=== PATIENT | male | born 1950 | race Caucasian/White ===

== ENCOUNTER → 2021-07-20 12:57 | Outpatient (BNVA) | payer MEDICARE, OTHER, SELFPAY | PROVIDERS: PCP Internal Medicine; Visit Provider Nurse Practitioner Family | DX: R90.82 White matter disease, unspecified (principal); R26.9 Unspecified abnormalities of gait and mobility; R29.898 Other symptoms and signs involving the musculoskeletal system; R25.1 Tremor, unspecified; F09 Unspecified mental disorder due to known physiological condition | CPT/HCPCS: 99202 ==

== ENCOUNTER → 2021-09-17 08:58 | Outpatient (BNVA) | payer MEDICARE, OTHER, SELFPAY | PROVIDERS: PCP Internal Medicine; Visit Provider Nurse Practitioner Family | DX: R26.9 Unspecified abnormalities of gait and mobility (principal); R25.1 Tremor, unspecified; F09 Unspecified mental disorder due to known physiological condition | CPT/HCPCS: 99212 ==

== ENCOUNTER 2024-02-28 08:10 | Outpatient (AMB) | payer MEDICARE, OTHER, SELFPAY ==
--- NOTE | 2024-02-28 08:11 | A.OFFVIS_ITS ---
Vital Signs 02/28/24 08:12 Height 6 ft 2 in Weight 213 lb BMI 27.3 BP 118/70 Blood Pressure Location Rt brachial Position Sitting Pulse 67 Pulse Source Pulse Oximeter Pulse Oximetry (%) 100 Oxygen Delivery Method Room Air Intake Visit Reasons: Follow up Intake Note: patient presents for follow up Allergies No Known Allergies Allergy (Verified 02/28/24 08:16) Medication List - Last Reconciled 02/28/24 by SALINAS Matta amlodipine 5 mg PO DAILY aspirin (Adult Low Dose Aspirin) 81 mg PO DAILY celecoxib (Celebrex) 50 mg PO BID omeprazole 20 mg PO DAILY rosuvastatin 10 mg PO DAILY sertraline 100 mg PO BID HPI Comments Details: 73-yr-old male presents for f/u visit after 2.5 yrs, w/ request to eval for possible Parkinson's d/t worsening cognition, tremor, voice changes. Pt denies any significant interval medical history changes. Pt's primary concerns are: worsening cognition Right-handed ADL's: Ind IADL's: Ind Living situation: Lives his , dtr and son-in-law and 2 grandchildren (7 yr old and 4 months old). Swallowing: Denies Hyposmia: Denies Voice changes: Denies- though states today his voice is raspy d/t congestion. Drooling: Occasional at night Orthostatic lightheadedness: Denies Constipation: Denies- more prone to frequent stools Urinary symptoms: Having urinary urgency, dribbling. Denies h/o BPH or prosttae d/o. Tremor: Occasional RUE postural tremor- more so if anxious. Denies rest tremor. Tremor does not affect his ADLs/IADLs. Dyskinesia: Denies Stiffness: Back is stiff every morning- does some exercises which helps Cramps: BLE cramps usually in early am when in bed. Gait changes: May bump into the corner of something. He has to be careful not to trip on things- notes there are a lot of toys etc in the home. Freezing: Denies Falls: Had a fall a few days ago, tripped over a root while walking on a path. Not as secure in his feet. Mood: Feels his Sertraline 200mg qhs is helpful for anxiety/depression. Hallucinations: Occasionally may feel that something just went past him. Or occasionally may have difficulty telling what something is. He has been attributing this to his glasses. He also notes some more difficulty with depth perception. Memory: He feels his memory is a bit worse. He may mispronounce a word. He has word finding difficulties. He may forget why her went into a room. He finds himself talking to himself to help w/ recall. He may forget how to start his computer but if he waits this may come to him. His last neuro-psych eval was c/w [facility] in 2021. Sleep: Usually sleeps ok. Denies parasomnias Exercise: Used to better at golf- attributes this to stress/desire. Otherwise no usual exercise. Previous brain MRI 2020 at [facility]- showed nonspefic white matter changes of bilateral periventricular regions. Does have some neck pain/tightness, can move into left shoulder shoulder blade. He coates shave h/o multilevel cervical neural foraminal stenosis. He currently takes 2-3 rum (1-2 oz) and cokes most evenings (starts 2-3pm). He had quit alcohol cold turkey in Apr 2023, and kept this up for several months, and then slipped back to daily alcohol intake. 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 Pt denies h/o occupational exposures, service. Pt denies family h/o PD. [facility] Surgical History Hx of cholecystectomy History of heart surgery Previous back surgery Family History Mother Diabetes Social History Alcohol intake: current Patient Tobacco Use Status: Never used Tobacco Physical Exam Vital Signs: Last Vital Signs Pulse 67 02/28/24 08:12 BP 118/70 02/28/24 08:12 Pulse Ox 100 02/28/24 08:12 Oxygen Delivery Method Room Air 02/28/24 08:12 BMI result Body Mass Index 27.3 Const General: cooperative and no acute distress Resp Effort & Inspection: normal respiratory effort and able to speak in complete sentences Neuro Other: General: A&O x's 3, word finding difficulties. Expression: Very mildly decreased Voice: Mildly soft and hoarse LALITHA: poor fluidity on right Tremor: Very mild RUE rest tremor. Mild BUE kinetic tremor Tone: Mild RUE tightness Dyskinesia: None FFM: BUE slightly decreased in size and fluidity, more so on right Foot taps: Slightly decreased, more so in right Gait: Able to stand w/o using arms, slight stoop, right tilt w/ shoulder drooped, decreased left arm swing, narrow based gait w/ steps w/ decreased floor clearance, multiple steps to turn. Psych: Pleasant affect Assessment & Plan Assessment & Plan (1) Cognitive dysfunction: Code(s): F09 - Unspecified mental disorder due to known physiological condition Category: Medical (2) White matter abnormality on MRI of brain: Code(s): R90.82 - White matter disease, unspecified Category: Medical (3) Tremor: Code(s): R25.1 - Tremor, unspecified Category: Medical (4) Gait difficulty: Code(s): R26.9 - Unspecified abnormalities of gait and mobility Category: Medical Plan Pt advised to undergo: brain MRI wo to assess for secondary etiologies of worsening tremor, gait difficulties insetting of h/o cerebral white matter disease. PT eval & tx Follow-up neuro-psych eval to better assess if pt has had a progression in MCI s/s. Future considerations- trial of low dose dopaminergic tx to help mobility/gait- though would need to use caution to not exacerbate hallucinations. Pt seen in c/w Dr Roxann Teague. Will follow-up upon review of above and patient to follow-up in clinic in 6 months or sooner prn. Orders: Orders MR head/brain wo con 02/28/24 R90.82 - White matter disease, unspecified, F09 - Unspecified mental disorder due to known physiological condition, R25.1 - Tremor, unspecified, R26.9 - Unspecified abnormalities of gait and mobility PT Evaluation and Treatment 02/28/24 R26.9 - Unspecified abnormalities of gait and mobility, R25.1 - Tremor, unspecified Referrals Neuropsychiatry Referral F09 - Unspecified mental disorder due to known physiological condition, R90.82 - White matter disease, unspecified Coding Level of Care Code Est Pt Level 4 (93997) Diagnoses Cognitive dysfunction F09 White matter abnormality on MRI of brain R90.82 Tremor R25.1 Gait difficulty R26.9
[2024-02-28 08:12] VITALS: BP 118/70; PULSE 67; O2SAT 100; BMI 27.3
== END 2024-02-28 09:20 | disposition home or self-care (01) ==
PROVIDERS: PCP Internal Medicine; Visit Provider Nurse Practitioner Family
DX: R90.82 White matter disease, unspecified (principal); F09 Unspecified mental disorder due to known physiological condition; R25.1 Tremor, unspecified; R26.9 Unspecified abnormalities of gait and mobility
CPT/HCPCS: 99214

== ENCOUNTER → 2024-02-28 08:10 | Outpatient (BNVA) | payer MEDICARE, OTHER, SELFPAY | PROVIDERS: PCP Internal Medicine; Visit Provider Nurse Practitioner Family | DX: R90.82 White matter disease, unspecified (principal); R25.1 Tremor, unspecified; R26.9 Unspecified abnormalities of gait and mobility; F09 Unspecified mental disorder due to known physiological condition | CPT/HCPCS: 99212 ==

== ENCOUNTER 2024-04-13 17:46 | Outpatient (REF) | payer MEDICARE, OTHER, SELFPAY ==
--- NOTE | ~2024-04-13 | MR_ITS ---
EXAMINATION: MR BRAIN WITHOUT CONTRAST CLINICAL INFORMATION: White matter disease. COMPARISON: None available. TECHNIQUE: MRI of the brain was obtained using routine sequences without contrast. FINDINGS: No focal restricted diffusion is demonstrated to suggest acute or subacute cerebral ischemia. No evidence of acute or chronic hemorrhagic products on heme-sensitive imaging. Scattered and partially confluent periventricular, deep white matter, and brainstem T2 FLAIR hyperintensities consistent with mild to moderate underlying microangiopathy. Proportional prominence of the ventricles and sulcal spaces without evidence of obstructive hydrocephalus. No abnormal mass effect. No midline shift. Normal appearance of the pituitary gland. Normal positioning of the cerebellar tonsils. Normal arterial and venous vascular flow voids are present. Normal, homogeneous marrow signal. Mild mucosal thickening of the paranasal sinuses. No signal abnormalities within the mastoids. MR/MR head/brain wo con IMPRESSION: 1. No acute intracranial abnormalities. 2. Mild to moderate underlying microangiopathy and generalized cerebral volume loss. Electronically signed by: Danny Dwyer DO 05/16/2024 06:21 AM SHAMA
== END 2024-04-13 17:47 | disposition home or self-care (01) ==
LOC: HO.MRI 17:46
PROVIDERS: PCP Internal Medicine; Visit Provider Nurse Practitioner Family
DX: R90.82 White matter disease, unspecified (principal); F09 Unspecified mental disorder due to known physiological condition; R25.1 Tremor, unspecified; R26.9 Unspecified abnormalities of gait and mobility
CPT/HCPCS: 70551

== ENCOUNTER 2024-09-06 10:39 | Outpatient (AMB) | payer MEDICARE, OTHER, SELFPAY ==
[2024-09-06 10:43] VITALS: BP 122/74; BMI 26.4
--- NOTE | 2024-09-06 10:43 | A.OFFVIS_ITS ---
Vital Signs 09/06/24 10:43 Height 6 ft 2 in Weight 206 lb BMI 26.4 BP 122/74 Blood Pressure Location Rt brachial Position Sitting Intake Visit Reasons: Follow up Intake Note: Patient presents follow up cognitive impairment. MRI/PT/Neuropsych eval in chart. Allergies No Known Allergies Allergy (Verified 09/06/24 10:45) HPI Comments Details: Right-handed 74-yr-old male presents for f/u visit for possible Parkinson's. Pt denies any significant interval medical history changes. Pt states he feels that everything is starting to fall apart in his overall health, for instance tinnitus- has been using an OTC tinnitus tx (drops which he adds to a drink)- but not sure it is helping. He did have interval recent neuro-psych eval, results were again c/w [facility] in 2023. Recomendations were to: * Cease alcohol consumption- pt states he did this 6 months ago * Attend counseling w/ his - to address issues living w/ his dtr and her family- pt states his declined. he also states taht not everyone is home at one time, so they cannot arrange for a family meeting. * Sleep study- believe this was being ordered through his PCP's office. ADL's: Ind IADL's: Ind Living situation: Lives his , dtr and son-in-law and 2 grandchildren (8 yr old and 10 months old). Swallowing: Denies Hyposmia: Denies Voice changes: Denies- though states today his voice is raspy d/t congestion. Drooling: Occasional at night Orthostatic lightheadedness: Denies Constipation: Worsening cramps/constipation (though not typically constipated) which fluctuates with diarrhea. Not using any laxatives- as he is worried about triggering diarrhea- states he thinks the constipation is triggered by his anti- diarrheal tx- f/b ? [facility]. Urinary symptoms: Having urinary frequency which he attributes to his prostate. Tremor: Occasional BUE L > R postural tremor- not bothersome, more so if anxious. Denies rest tremor. Tremor does not affect his ADLs/IADLs. Dyskinesia: Denies Stiffness: Neck, Back and joint stiffness- feels age-related. Cramps: Occasionally has BLE cramps- if occurs, usually in early am when in bed. Gait changes: He did PT which helped, but notes he has not followed through w/ the exercises as much. Freezing: Denies Falls: Denies interval falls. Mood: Sometimes can feel nasty- especially if an issue with his computer- computer itself needed updating, such as placing an order which was not processed as it should, also living in a house with lots of people and stuff. Feels his Sertraline 200mg qhs is helpful for anxiety/depression. Hallucinations: Occasionally may see something in is periphery. Or occasionally may have difficulty telling what something is. He has been attributing this to his glasses. He also notes some more difficulty with depth perception. Memory: He feels his memory is a bit worse. He may mispronounce a word. He has word finding difficulties. He may lose his train of thought, or forget why her went into a room. Sleep: Usually sleeps ok. Denies parasomnias Exercise: Unable to golf right now due to recently cutting his left 1st thumb requiring stiches. Otherwise no usual exercise. 04/13/2024, brain MRI w/o contrast showed Mild to moderate underlying microangiopathy and generalized cerebral volume loss. Previous brain MRI 2020 at [facility]- showed nonspefic white matter changes of bilateral periventricular regions. H/o multilevel cervical neural foraminal stenosis. 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 Pt denies h/o occupational exposures, service. Pt denies family h/o PD. [facility] Surgical History Hx of cholecystectomy History of heart surgery Previous back surgery Family History Mother Diabetes Social History Alcohol intake: current Patient Tobacco Use Status: Never used Tobacco Physical Exam Vital Signs: Last Vital Signs BP 122/74 09/06/24 10:43 BMI result Body Mass Index 26.4 Const General: cooperative and no acute distress Resp Effort & Inspection: normal respiratory effort and able to speak in complete se ntences Neuro Other: General: A&O x's 3, very mild word finding difficulties. Expression: Very mildly decreased Voice: Mildly soft and hoarse Tremor: Very mild RUE rest tremor. Mild BUE kinetic tremor Tone: Mild RUE tightness Dyskinesia: None FFM: BUE slightly decreased in size and fluidity, more so on right Foot taps: Slightly decreased, more so in right Gait: Able to stand w/o using arms, slight stoop, shoulder drooped, decreased left arm swing, narrow based gait w/ steps w/ decreased floor clearance. Psych: Pleasant affect Assessment & Plan Assessment & Plan (1) Tremor: Code(s): R25.1 - Tremor, unspecified Category: Medical (2) White matter abnormality on MRI of brain: Code(s): R90.82 - White matter disease, unspecified Category: Medical (3) Gait difficulty: Code(s): R26.9 - Unspecified abnormalities of gait and mobility Category: Medical (4) Depression: Code(s): F32.A - Depression, unspecified Category: Medical (5) MCI (mild cognitive impairment): Code(s): G31.84 - Mild cognitive impairment of uncertain or unknown etiology Category: Medical Plan Reviewed- Brain MRI wo- Mild to moderate underlying microangiopathy and generalized cerebral volume loss. * No clear findings to account for patient's symptoms * Commended pt on alcohol cessation * BP normotensive * Discussed importance of maintaining good CV and metabolic control Neuro-psych report * Results stable- c/w [facility] howveer cognition may be impacted by depression and life stressors. * As pt states /family are unable to participate in family tehrapy, pt advised to start individual psychotherapy- such as a CBT. Pt agrees to a referral to [facility] behavioral [facility]. * Increase physical activity * Concur with sleep study- pt believes PCP's office has scheduled For Tremor * There is mild progression and associated possible hallucinations, which does raise suspicion for PD, however motor symptoms are still mild, and pt is not interested in trial of dopaminergic tx at this time. * Continue to monitor * Increase physical actvity- set a schedule for daily exercise- once thumb injury has fully healed. * Future considerations- trial of low dose dopaminergic tx to help mobility/gait- though would need to use caution to not exacerbate hallucinations. Follow-up in clinic in 6 months or sooner prn. Orders: Referrals Psychology Referral F32.A - Depression, unspecified, G31.84 - Mild cognitive impairment of uncertain or unknown etiology, R25.1 - Tremor, unspecified Coding Level of Care Code Est Pt Level 4 (78409) Complex EM visit Add On G2211 Diagnoses Tremor R25.1 White matter abnormality on MRI of brain R90.82 Gait difficulty R26.9 Depression F32.A MCI (mild cognitive impairment) G31.84
--- OUTSIDE RECORDS SUMMARY | 2024-09-06 11:49 | XMS_ITS | Clinical Summary ---
Author Organization [facility] Address [address] [place] [id number] Care Team Providers Care Irrigation Service Technician Name Role Phone Bharathi Centeno MD Primary Care Provider [phone]- [phone] Allergies No known active allergies Medications Medication Sig Dispensed Refills Start Date End Date Status amLODIPine (NORVASC) tablet 5 mg 0 10/28/2020 Active Aspirin Buf,LkPqdk-BbYudm-TeH, 81 MG TABS Take 1 tablet by mouth daily. 0 11/01/2008 Active celecoxib (CeleBREX) 200 MG capsule Take 1 capsule (200 mg total) by mouth. 0 07/04/2020 Active omeprazole (PriLOSEC) 20 MG capsule 0 08/31/2020 Active rosuvastatin (CRESTOR) tablet 40 mg 0 10/28/2020 Active sertraline (ZOLOFT) 100 MG tablet 0 09/22/2020 Active Multiple Vitamin (MULTI-VITAMIN PO) Take by mouth. 0 Ac tive Active Problems No known active problems Social History Tobacco Use Types Packs/Day Years Used Date Smoking Tobacco: Former Smokeless Tobacco: Never Alcohol Use Standard Drinks/Week Comments Yes 0 (1 standard drink = 0.6 oz pur e alcohol) 3 or 4 cocktails daily Sex and Gender Information Value Date Recorded Sex Assigned at Not on file Gender Identity Not on file Sexual Orientation Not on file Job Start Date Occupation Industry Not on file Not on file Not on file Last Filed Vital Signs Vital Sign Reading Time Taken Comments Blood Pressure 129/74 09/12/2023 10:10 AM EDT Pulse 59 09/12/2023 10:10 AM EDT Temperature 36.6 ??C (97.8 ??F) 09/12/2023 10:10 AM E DT Respiratory Rate - - Oxygen Saturation 98% 09/12/2023 10:10 AM EDT Inhaled Oxygen Concentration - - Weight 97.5 kg (215 lb) 09/12/2023 10:10 AM EDT Height 188 cm (6' 2 ) 09/12/2023 10:10 AM EDT Body Mass Index 27.6 09/12/2023 10:10 AM EDT Plan of Treatment Health Maintenance Due Date Last Done Comments Hepatitis C Screening 1950 Pneumococcal Vaccine (1 of 2 - PCV) 1954 Depression Screening 1960 Preventative Health Evaluation 1966 Fall Risk Assessment 2013 COVID-19 Vaccine ( season) 2024 04/06/2023, 09/28/2021, 2021, Additional history exists Influenza Vaccine (#1) 2024 , 02/11/2022, 2021, Additional history exists DTap / Tdap / Td (3 - Td or Tdap) 10/21/2030 10/21/2020, 02/23/2008 Shingrix-Zoster Vaccine Completed 12/14/2021, 09/28 RSV Adult > 60+ Yrs or Completed 04/06/2023 Hepatitis B Vaccines Aged Out No long er eligible based on patient's age to complete this topic RSV Ped < 20 months Aged Out No longe r eligible based on patient's age to complete this topic Care Teams Irrigation Service Technician Relationship Specialty Start Date End Date Bharathi Centeno MD [address] [place] [id number] PCP - General Internal Medicine 11/14/19
--- OUTSIDE RECORDS SUMMARY | 2024-09-06 11:50 | XMS_ITS | Clinical Summary ---
Author Organization [facility] [employer] [facility] Address [address] [place] [address] Care Team Providers Care Public Services Librarian Name Role Phone Unavailable Primary Care Provider Unavailabl e Social History Tobacco Use Types Packs/Day Years Used Date Smoking Tobacco: Never Assessed Sex and Gender Information Value Date Recorded Sex Assigned at Not on file Legal Sex Male 6:49 PM EDT Gender Identity Not on file Sexual Orientation Not on file Plan of Treatment Health Maintenance Due Date Last Done Comments Depression: Screening Annual ly using PHQ-2/9 in Adults 18 yrs or above (or HM Modifier)([facility]) 1950 Hepatitis C Virus Infection in Adolescents and Adults: Screening (or Modifier) ([facility]) 1966 SDOH Screening Reminder: Barbara torres for all adults ([facility]) 1966 Tobacco Smoking Cessation: i n Adults excluding Women: Behavioral and Pharmacotherapy Interventions ([facility]) 1966 DTaP/Tdap/Td Vaccines ([facility]) (1 - Tdap) 1967 Lipid Screening: Every 5 yrs for Men aged 35+ (or HM Modifier) ([facility]) 1984 Pneumococcal Vaccination Scr eening: Patients 50+ yrs of age ([facility]) (1 of 1 - PCV) 1998 Zoster/Shingles Vaccine Seri es Screening: Adults aged 18+ yrs (or HM Modifiers)([facility]) (1 of 2) 1998 RSV Vaccines (1 - 1-dose 75+ series) 2023 Flu Vaccination: Ages 65+: Y early High Dose Recommended (or Modifier)([facility]) 01/05/2024 COVID-19 Vaccine Screening: Initial Series and Booster Status ([facility]) ( - season) 2024 Medical Devices Not on file Insurance [facility]
--- OUTSIDE RECORDS SUMMARY | 2024-09-06 11:50 | XMS_ITS | Clinical Summary ---
Author Organization [facility] Address [address] [place] [address] Phone Care Team Providers Care Tractor Trailer Operator Name Role Phone Bharathi Centeno MD Primary Care Provider [phone] Allergies No known active allergies Medications amLODIPine (NORVASC) 5 mg tablet 1 Active aspirin 81 mg EC tablet 1 TABLET DAILY 9 Active multivitamin tablet Take by mouth. Active omeprazole (PriLOSEC) [address] capsule 1 Active rosuvastatin (CRESTOR) 40 mg tablet 1 Active sertraline (ZOLOFT) 100 mg tablet 1 Active busPIRone (BUSPAR) 5 mg tablet TAKE 1 TABLET 2 TIMES DAILYAS NEEDED FOR ANXIETY Active dicyclomine (BENTYL) 10 mg capsule TAKE 1 CAPSULE 4 TIMES DAILY NEEDED BEFORE MEALS AND AT BED NEEDED 4 Active celecoxib (CeleBREX) 200 mg capsule Take 1 capsule (200 mg total) by mouth. 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) from Last 3 Months Immunizations Name Administration Dates Next Due Pfizer (ages 12 & older) FRANCO S-CoV-2 COVID-19, mRNA, LNP-S, blake-sucrose, preservative free 09/28/2021 Pfizer SARS-CoV-2 COVID-19, mRNA, LNP-S, preservative free 04/06/2023,2021,08/19/2020,2020 Social History Tobacco Use Types Packs/Day Years Used Date Smoking Tobacco: Former Smokeless Tobacco: Never Tobacco Cessation:Counseling Given: Not Answered Alcohol Use Standard Drinks/Week Comments Yes 0 (1 standard drink = 0.6 oz pur e alcohol) Sex and Gender Information Value Date Recorded Sex Assigned at Not on file Legal Sex Male 4:45 PM EST Gender Identity Not on file Sexual Orientation Not on file Obstetrics History Last Filed Vital Signs Vital Sign Reading Time Taken Comments Blood Pressure 132/75 08/13/2024 10:16 AM EDT Pulse 61 08/13/2024 10:16 AM EDT Temperature 36.6 ??C (97.8 ??F) 08/13/2024 10:16 AM E DT Respiratory Rate - - Oxygen Saturation 100% 08/13/2024 10:16 AM EDT Inhaled Oxygen Concentration - - Weight 96.2 kg (212 lb) 08/13/2024 10:16 AM EDT Height 188 cm (6' 2 ) 09/12/2023 10:10 AM EDT Body Mass Index 27.22 09/12/2023 10:10 AM EDT Plan of Treatment Health Maintenance Due Date Last Done Comments Hepatitis A Vaccines (1 of 2 - Risk 2-dose series) 1967 Hepatitis B Vaccines (1 of 3 - Risk 3-dose series) 2008 Cholesterol Screening (Lipid Panel) 05/15/2022 Depression Screening 05/15/2022 Falls Risk Assessment 05/15/2022 Hepatitis C Screening 05/15/2022 Medicare Annual Wellness Visit 05/15/2022 Social Influencers of Health Screening 05/15/2022 Hypertension/CHF/CAD Annual BMP Blood Test 08/09/2025 08/09/2024 DTaP,Tdap,and Td Vaccines (4 - Td or Tdap) 09/04/2033 09/05/2023, 10/21/2020, 02/23/2008 Zoster Vaccines Completed 12/14/2021, 04/2 10/2021, 09/19/2012 Pneumococcal Vaccine: 50+ Years Completed 04/06/2023 RSV Immunization Adult Patients Completed 04/06/2023 COVID-19 Vaccine Completed 03/30/2024, 06/2022, 02/11/2022, Additional history exists Influenza Vaccine Completed 03/30/2024, , 02/11/2022, Additional history exists HIB Vaccines Aged Out No longer eligi ble based on patient's age to complete this topic HPV Vaccines Aged Out No longer eligi ble based on patient's age to complete this topic IPV Vaccines Aged Out No longer eligi ble based on patient's age to complete this topic MMR Vaccines Aged Out No longer eligi ble based on patient's age to complete this topic Meningococcal ACWY Vaccine Aged Out N o longer eligible based on patient's age to complete this topic Meningococcal B Vacine Aged Out No lo nger eligible based on patient's age to complete this topic RSV Immunization Patients Under 20 months Aged Out No longer eligible based on patient's age to complete this topic Varicella Vaccines Aged Out No longer eligible based on patient's age to complete this topic Procedures Procedure Name Priority Date/Time Associated Diagnosis Comments CBC WITH AUTO DIFFERENTIAL Routine 08/09/2024 2:47 PM EST Monoclonal paraproteinemia COMPREHENSIVE METABOLIC PANEL Routine 08/09/2024 2:47 PM EST Monoclonal paraproteinemia CBC AND DIFFERENTIAL Routine 08/09/2024 2:47 PM EST Monoclonal paraproteinemia IMMUNOGLOBULIN IGG Routine 08/09/2024 2: 47 PM EST Monoclonal paraproteinemia IMMUNOGLOBULIN IGA Routine 08/09/2024 2: 47 PM EST Monoclonal paraproteinemia from Last 3 Months Results * (ABNORMAL) CBC auto differential (08/09/2024 2:47 PM EST) WBC 5.0 4.8 - 10.8 K/mcL LAB HEMETOLOGY METHOD 08/09/2024 3:[address] [facility] RBC 4.30(L) 4.50 - 5.50 M/mcL LAB HEMETOLOGY METHOD 08/09/2024 3:[address] [facility] Hemoglobin 13.5 13.5 - 17.5 g/dL LAB HEMETOLOGY METHOD 08/09/2024 3:[address] [facility] Hematocrit 40.7(L) 42.0 - 54.0 % LAB HEMETOLOGY METHOD 08/09/2024 3:[address] [facility] MCV 94.4 79.0 - 98.0 FL LAB HEMETOLOGY METHOD 08/09/2024 3:[address] [facility] MCH 31.3 27.0 - 32.0 pcg LAB HEMETOLOGY METHOD 08/09/2024 3:[address] [facility] MCHC 33.2 32.0 - 37.0 g/dL LAB HEMETOLOGY METHOD 08/09/2024 3:[address] [facility] RDW 12.1 11.0 - 15.0 % LAB HEMETOLOGY METHOD 08/09/2024 3:[address] [facility] Platelets 141 130 - 400 K/mcL LAB HEMETOLOGY METHOD 08/09/2024 3:[address] [facility] MPV 10.1 7.0 - 11.0 FL LAB HEMETOLOGY METHOD 08/09/2024 3:[address] [facility] NRBC 0.0 <1.0 % LAB HEMETOLOGY METHOD 08/09/2024 3:[address] [facility] NRBC Absolute 0.00 <0.10 K/mcL LAB HEMETOLOGY METHOD 08/09/2024 3:[address] [facility] Neutrophils Relative 73.5 % LAB HEMETOLOGY METHOD 08/09/2024 3:[address] [facility] Lymphocytes Relative 16.8 % LAB HEMETOLOGY METHOD 08/09/2024 3:[address] [facility] Monocytes Relative 6.3 % LAB HEMETOLOGY METHOD 08/09/2024 3:[address] [facility] Eosinophils Relative 2.4 % LAB HEMETOLOGY METHOD 08/09/2024 3:[address] [facility] Basophils Relative 0.8 % LAB HEMETOLOGY METHOD 08/09/2024 3:[address] [facility] Immature Granulocytes Relative 0.2 % LAB HEMETOLOGY METHOD 08/09/2024 3:[address] [facility] Neutrophils Absolute 3.64 1.50 - 7.00 K/mcL LAB HEMETOLOGY METHOD 08/09/2024 3:[address] [facility] Lymphocytes Absolute 0.83(L) 1.00 - 5.00 K/mcL LAB HEMETOLOGY METHOD 08/09/2024 3:[address] [facility] Monocytes Absolute 0.31 0.20 - 1.00 K/mcL LAB HEMETOLOGY METHOD 08/09/2024 3:[address] [facility] Eosinophils Absolute 0.12 0.00 - 0.50 K/mcL LAB HEMETOLOGY METHOD 08/09/2024 3:[address] [facility] Basophils Absolute 0.04 0.00 - 0.20 K/mcL LAB HEMETOLOGY METHOD 08/09/2024 3:[address] [facility] Immature Granulocytes Absolute 0.01 0.00 - 0.03 K/mcL LAB HEMETOLOGY METHOD 08/09/2024 3:[address] [facility] Blood Venous blood specimen / Unknown Venipuncture / Unknown 08/09/2024 2:47 PM EST 08/09/2024 2:47 PM EST [facility] Kaylyn Franklin MD LAB BLOOD ORDERABLES Final R esult Performing Organization Address City/[facility]/ZIP Co de Phone Number [facility] [address] [place] [address], [place] [phone] * Immunoglobulin IgA (08/09/2024 2:47 PM EST) [facility] IgA 233 61 - 348 mg/dL LAB CHEMISTRY METHOD 08/09/2024 4:21 PM EST [facility] Blood Venous blood specimen / Unknown Venipuncture / Unknown 08/09/2024 2:47 PM EST 08/09/2024 2:47 PM EST us Courtney Franklin MD LAB BLOOD ORDERABLES Final R esult Performing Organization Address [facility] de Phone Number [facility] [address] [place] [address], [place] [phone] * Immunoglobulin IgG (08/09/2024 2:47 PM EST) [facility] Total IgG 1,220 549 - 1,584 mg/dL LAB CHEMISTRY METHOD 08/09/2024 4:21 PM EST [facility] Blood Venous blood specimen / Unknown Venipuncture / Unknown 08/09/2024 2:47 PM EST 08/09/2024 2:47 PM EST Courtney Franklin MD LAB BLOOD ORDERABLES Final R esult Performing Organization Address City/[facility]/ZIP Co de Phone Number [facility] [address] [place] [address], [place] [phone] * Comprehensive metabolic panel (08/09/2024 2:47 PM EST) [facility] Sodium 141 133 - 145 mmol/L LAB CHEMISTRY METHOD 08/09/2024 4:21 PM EST [facility] Potassium 4.2 3.5 - 5.5 mmol/L LAB CHEMISTRY METHOD 08/09/2024 4:21 PM EST [facility] Chloride 106 96 - 110 mmol/L LAB CHEMISTRY METHOD 08/09/2024 4:[address] [facility] CO2 26 21 - 32 mmol/L LAB CHEMISTRY METHOD 08/09/2024 4:[address] [facility] Anion Gap 9 3 - 11 LAB CHEMISTRY METHOD 08/09/2024 4:[address] [facility] Glucose 95 70 - 100 mg/dL LAB CHEMISTRY METHOD 08/09/2024 4:[address] [facility] BUN 20 5 - 25 mg/dL LAB CHEMISTRY METHOD 08/09/2024 4:[address] [facility] Creatinine 1.18 0.70 - 1.30 mg/dL LAB CHEMISTRY METHOD 08/09/2024 4:[address] [facility] eGFR 64 >=60 mL/min/1. 73m2 LAB CHEMISTRY METHOD 08/09/2024 4:[address] [facility] Comment:Calculation based on the??Chronic Kidney Disease Epidemiology Collaboration (CKD-EPI) equation refit??without adjustment for race. BUN/Creatinine Ratio 16.9 LAB CHEMISTRY METHOD 08/09/2024 4:[address] [facility] Calcium 9.2 8.5 - 10.5 mg/dL LAB CHEMISTRY METHOD 08/09/2024 4:[address] [facility] AST (SGOT) 25 10 - 42 unit/L LAB CHEMISTRY METHOD 08/09/2024 4:[address] [facility] ALT (SGPT) 29 10 - 60 unit/L LAB CHEMISTRY METHOD 08/09/2024 4:[address] [facility] Alkaline Phosphatase 72 42 - 121 unit/L LAB CHEMISTRY METHOD 08/09/2024 4:[address] [facility] Total Protein 7.3 6.0 - 8.0 g/dL LAB CHEMISTRY METHOD 08/09/2024 4:[address] [facility] Albumin 3.9 3.2 - 5.0 g/dL LAB CHEMISTRY METHOD 08/09/2024 4:21 PM EST [facility] Total Bilirubin 0.4 0.0 - 1.4 mg/dL LAB CHEMISTRY METHOD 08/09/2024 4:21 PM EST [facility] Blood Venous blood specimen / Unknown Venipuncture / Unknown 08/09/2024 2:47 PM EST 08/09/2024 2:47 PM EST us Courtney Franklin MD LAB BLOOD ORDERABLES Final R esult [facility] ([facility] [address] [place] [address], from Last 3 Months Insurance MEDICARE [facility] Care Teams Tractor Trailer Operator Relationship Specialty Start Date End Date Bharathi Centeno MD [address] [address] PCP - General Internal Medicine 6/10/20
== END 2024-09-06 11:39 | disposition home or self-care (01) ==
LOC: HO.HSMS 10:40
PROVIDERS: PCP Internal Medicine; Visit Provider Nurse Practitioner Family
DX: R25.1 Tremor, unspecified (principal); R90.82 White matter disease, unspecified; R26.9 Unspecified abnormalities of gait and mobility; F32.A Depression, unspecified; G31.84 Mild cognitive impairment of uncertain or unknown etiology
CPT/HCPCS: 99214; G2211

== ENCOUNTER → 2024-09-06 10:39 | Outpatient (BNVA) | payer MEDICARE, OTHER, SELFPAY | PROVIDERS: PCP Internal Medicine; Visit Provider Nurse Practitioner Family | DX: R25.1 Tremor, unspecified (principal); R90.82 White matter disease, unspecified; R26.9 Unspecified abnormalities of gait and mobility; F32.A Depression, unspecified; G31.84 Mild cognitive impairment of uncertain or unknown etiology | CPT/HCPCS: 99212 ==